=== PATIENT | female | born 1995 | race Caucasian/White ===

== ENCOUNTER 2016-07-08 18:19 | Emergency (ER) | payer OTHER ==
[2016-07-08 19:08] VITALS: BP 130/74
--- NOTE | 2016-07-08 20:27 | RAD ---
INDICATION: Mid wrist pain overlying the carpal bones after a seizure COMPARISON: None. TECHNIQUE: 3 views left wrist. REPORT: The visualized bones are properly aligned and well corticated. The joint spaces are normal.There is no fracture, dislocation or other focal osseous abnormality. IMPRESSION: Normal radiograph of the left wrist. If the patient's symptoms persist, follow-up imaging is recommended.
--- NOTE | 2016-07-08 20:54 | UC ---
Hand/Wrist HPI - HPI Summary HPI Summary: HISTORY OF SEIZURES, BEING FOLLOWED BY DR VILLALOBOS, ON MEDICATION. AFTER SEIZURE 2.5 HOURS AGO HAD LEFT WRIST PAIN - History Of Current Complaint Chief Complaint: UCUpperExtremity Stated Complaint: WRIST INJURY Time Seen by Provider: 07/08/16 19:04 Hx Obtained From: Patient Hx Last Menstrual Period: 05/27/16 Onset/Duration: Sudden Onset, Lasting Hours, Still Present Severity Initially: Moderate Severity Currently: Moderate Character Of Pain: Dull, Aching, Stiffness Aggravating Factor(s): Flexion, Extension Alleviating: Nothing Related History: Dominant Hand Right - Allergies/Home Medications Allergies/Adverse Reactions: Allergies Allergy/AdvReac Type Severity Reaction Status Date / Time Latex Allergy Hives Verified 06/29/16 13:49 Pineapple Allergy Anaphylatic Verified 06/29/16 13:49 Shock BARBECUE SAUCE Allergy Anaphylatic Uncoded 06/29/16 13:49 Shock environmental Allergy Eyes Uncoded 05/03/15 11:06 Itchy/Swollen/Red/Watery Home Medications: Home Medications Levetiracetam [Keppra 500] 500 mg PO BID 07/08/16 [History Confirmed 07/08/16] PMH/Surg Hx/FS Hx/Imm Hx Previously Healthy: Yes Endocrine History Of: Denies: Diabetes Cardiovascular History Of: Denies: Hypertension, Pacemaker/ICD GI/ History Of: Denies: Renal Disease - Surgical History Surgical History: Yes Surgery Procedure, Year, and Place: appendectomy - Family History Known Family History: Positive: Cardiac Disease - Social History Occupation: Unemployed Lives: With Family Alcohol Use: None Substance Use Type: None Smoking Status (MU): Light Every Day Tobacco Smoker Type: Cigarettes Have You Smoked in the Last Year: No Household Exposure Type: Cigarettes Review of Systems Constitutional: Negative Skin: Negative Eyes: Negative ENT: Negative Respiratory: Negative Cardiovascular: Negative Gastrointestinal: Negative Genitourinary: Negative Motor: Negative Neurovascular: Negative Musculoskeletal: Arthralgia, Decreased ROM, Myalgia Neurological: Negative Psychological: Negative All Other Systems Reviewed And Are Negative: Yes Physical Exam Triage Information Reviewed: Yes Appearance: Well-Appearing, No Pain Distress, Well-Nourished Vital Signs: Initial Vital Signs Temp 98.0 F 07/08/16 19:04 Pulse 79 07/08/16 19:04 Resp 18 07/08/16 19:04 BP 130/74 07/08/16 19:04 Pulse Ox 99 07/08/16 19:04 Vital Signs Reviewed: Yes Eye Exam: Normal ENT Exam: Normal ENT: Positive: Normal ENT inspection, Hearing grossly normal, Pharynx normal, TMs normal Dental Exam: Normal Neck exam: Normal Neck: Positive: Supple, Nontender, No Lymphadenopathy Respiratory Exam: Normal Respiratory: Positive: Chest non-tender, Lungs clear, Normal breath sounds, No respiratory distress, No accessory muscle use Cardiovascular Exam: Normal Cardiovascular: Positive: RRR, No Murmur, Pulses Normal Abdominal Exam: Normal Abdomen Description: Positive: Nontender, No Organomegaly Musculoskeletal: Positive: No Edema, Strength Limited @ - LEFT WRIST, ROM Limited @ - LEFT WRIST Neurological Exam: Normal Psychological Exam: Normal Psychological: Positive: Normal Response To Family Skin Exam: Normal Hand/Wrist Course/Dx - Differential Dx/Diagnosis Differential Diagnosis/HQI/PQRI: Fracture, Sprain, Strain Provider Diagnoses: LEFT WRIST SPRAIN Discharge - Discharge Plan Condition: Stable Disposition: HOME Patient Education Materials: Wrist Sprain (ED) Referrals: [facility] – [facility] [Outside] Daron Escobar NP [Primary Care Provider] -
== END 2016-07-08 21:03 | disposition home or self-care (01) ==
LOC: UCEAST 18:19
DX: S63.502A Unspecified sprain of left wrist, initial encounter (principal); X58.XXXA Exposure to other specified factors, initial encounter; Y93.9 Activity, unspecified; Y92.9 Unspecified place or not applicable; G40.909 Epilepsy, unspecified, not intractable, without status epilepticus; F17.210 Nicotine dependence, cigarettes, uncomplicated
CPT/HCPCS: 99212; G0463

== ENCOUNTER 2017-12-31 18:40 | Emergency (ER) | payer OTHER ==
--- NOTE | 2017-12-31 20:06 | ED ---
Upper Extremity Pain - HPI Summary HPI Summary: This patient is a 22 year old F presenting to [facility] with a chief complaint of left wrist pain since 15:00 today. Patient reports that she had a seizure today and fell onto her left wrist. The patient rates the pain 10/10 in severity. Symptoms aggravated by movement. Symptoms alleviated by nothing. Patient denies any other pain. Patient has hx of seizures but notes that she does not usually have more than one per day. Patient takes Keppra and Lamictal. - History of Current Complaint Chief Complaint: EDGeneral Stated Complaint: LT WRIST INJURY Time Seen by Provider: 12/31/17 19:39 Hx Obtained From: Patient Hx Last Menstrual Period: 05/27/16 Mechanism Of Injury: Fall From A Standing Position Onset/Duration: Started Hours Ago, Still Present Timing: Constant, Lasting Hours Severity Initially: Moderate Severity Currently: Moderate Pain Location: Wrist - left Aggravating Factor(s): Movement Alleviating Factor(s): Nothing - Allergies/Home Medications Allergies/Adverse Reactions: Allergies Allergy/AdvReac Type Severity Reaction Status Date / Time MS Latex [Latex] Allergy Hives Verified 06/29/16 13:49 MS Pineapple [Pineapple] Allergy Anaphylatic Verified 06/29/16 13:49 Shock BARBECUE SAUCE Allergy Anaphylatic Uncoded 06/29/16 13:49 Shock environmental Allergy Eyes Uncoded 05/03/15 11:06 Itchy/Swollen/Red/Watery PMH/Surg Hx/FS Hx/Imm Hx Endocrine/Hematology History: Denies: Hx Diabetes Cardiovascular History: Denies: Hx Hypertension, Hx Pacemaker/ICD History: Denies: Hx Renal Disease Sensory History: Denies: Hx Hearing Aid Neurological History: Reports: Hx Seizures Psychiatric History: Denies: Hx Panic Disorder - Surgical History Surgery Procedure, Year, and Place: appendectomy Infectious Disease History: No Infectious Disease History: Denies: Hx Clostridium Difficile, Hx Hepatitis, Hx Human Immunodeficiency Virus (HIV), Hx of Known/Suspected MRSA, Hx Shingles, Hx Tuberculosis, Hx Known/ Suspected VRE, Hx Known/Suspected VRSA, History Other Infectious Disease, Traveled Outside the [place] in Last 30 Days - Family History Known Family History: Positive: Cardiac Disease - Social History Alcohol Use: None Hx Substance Use: No Substance Use Type: Reports: None Hx Tobacco Use: Yes Smoking Status (MU): Light Every Day Tobacco Smoker Type: Cigarettes Have You Smoked in the Last Year: No Review of Systems Negative: Fever Negative: Epistaxis Negative: Cough Musculoskeletal: Other - left wrist pain Neurological: Other - seizure All Other Systems Reviewed And Are Negative: Yes Physical Exam - Summary Physical Exam Summary: Appearance: The patient is well-nourished in no acute distress and in no acute pain. Skin: The skin is warm and dry and skin color reflects adequate perfusion. HEENT: The head is normocephalic and atraumatic. The pupils are equal and reactive. The conjunctivae are clear and without drainage. Nares are patent and without drainage. Mouth reveals moist mucous membranes and the throat is without erythema and exudate. The external ears are intact. The ear canals are patent and without drainage. The tympanic membranes are intact. Neck: The neck is supple with full range of motion and non-tender. There are no carotid bruits. There is no neck vein distension. Respiratory: Chest is non-tender. Lungs are clear to auscultation and breath sounds are symmetrical and equal. Cardiovascular: Heart is regular rate and rhythm. There is no murmur or rub auscultated. There is no peripheral edema and pulses are symmetrical and equal. Abdomen: The abdomen is soft and non-tender. There are normal bowel sounds heard in all four quadrants and there is no organomegaly palpated. Musculoskeletal: Tender to dorsum of left wrist. There is no back tenderness noted. Other extremities are non-tender with full range of motion. There is good capillary refill. There is no peripheral edema or calf tenderness elicited. Neurological: Patient is alert and oriented to person, place and time. The patient has symmetrical motor strength in all four extremities. Cranial nerves are grossly intact. Deep tendon reflexes are symmetrical and equal in all four extremities. Psychiatric: The patient has an appropriate affect and does not exhibit any anxiety or depression. Triage Information Reviewed: Yes Vital Signs On Initial Exam: Initial Vitals Temp Pulse Resp BP Pulse Ox 97.6 F 101 16 137/85 98 12/31/17 18:44 12/31/17 18:44 12/31/17 18:44 12/31/17 18:44 12/31/17 18:44 Vital Signs Reviewed: Yes Diagnostics - Vital Signs Vital Signs Temp Pulse Resp BP Pulse Ox 12/31/17 18:44 97.6 F 101 16 137/85 98 - Laboratory Lab Statement: Any lab studies that have been ordered have been reviewed, and results considered in the medical decision making process. - Radiology Left Wrist XR Xray Interpretation: No Acute Changes - impression: negative for fracture Radiology Interpretation Completed By: ED Physician - Dr. Camara, pending official report Course/Dx - Course Course Of Treatment: Ms. Jacobson is a history of seizures and had a witnessed seizure today. She comes in with a concern that she hurt her wrist during the seizure and does not want to be evaluated for the breakthrough as she for he frequently has breakthrough seizures. She takes both Lamictal and Keppra, neither of which I can get a level on today. X-ray of her left wrist showed no acute fracture and she was placed in a cock-up splint and recommended follow-up. - Diagnoses Provider Diagnoses: Left wrist sprain, Breakthrough seizure Discharge - Sign-Out/Discharge Documenting (check all that apply): Patient Departure - discharge - Discharge Plan Condition: Stable Disposition: HOME Patient Education Materials: Recurrent Seizures in Adults (ED), Wrist Sprain ( ED) Referrals: Daron Escobar SOLDERER ASSEMBLER [Primary Care Provider] - Ayad Monroy MD [Medical Doctor] - 2 Days Additional Instructions: Follow up with Dr. Gayle, neurologist, in 2-3 days. Return to emergency department with any new or worsening symptoms. - Billing Disposition and Condition Condition: STABLE Disposition: Home - Attestation Statements Document Initiated by Scribe: Yes Documenting Scribe: Jamilah Mathew Provider For Whom Scribe is Documenting (Include Credential): Holden Camara MD Scribe Attestation: Jamilah Melissa, scribed for Holden Camara MD on 12/31/17 at 2150. Scribe Documentation Reviewed: Yes Provider Attestation: The documentation as recorded by the [email or web address] accurately reflects the service I personally performed and the decisions made by me, Holden Camara MD
[2017-12-31 20:44] VITALS: BP 116/79
--- NOTE | 2018-01-01 07:37 | RAD ---
INDICATION: Left wrist pain since a fall during a seizure similar examination dated July 08, 2016 COMPARISON: None. TECHNIQUE: 3 views left wrist. REPORT: The visualized bones are properly aligned and well corticated. The joint spaces are normal.There is no fracture, dislocation or other focal osseous abnormality. IMPRESSION: Normal radiograph of the left wrist. If the patient's symptoms persist, follow-up imaging is recommended. R0
== END 2017-12-31 20:37 | disposition home or self-care (01) ==
LOC: ED 18:40
DX: S63.502A Unspecified sprain of left wrist, initial encounter (principal); W19.XXXA Unspecified fall, initial encounter; Y92.9 Unspecified place or not applicable
CPT/HCPCS: 99281

== ENCOUNTER 2018-10-30 19:28 | Emergency (ER) | payer OTHER ==
[2018-10-30] MEDS ORDERED: diPHENhydraMINE PO* 25 MG PO ONE (22:06)
[2018-10-30] MEDS ORDERED: Ibuprofen TAB* 600 MG PO ONE (22:06)
--- NOTE | 2018-10-30 22:48 | ED ---
Adult Trauma - HPI Summary HPI Summary: Patient complains of right hip pain status post fall 10/28/18. Patient had been ambulating, but states pain was worse today, radiates down leg. Pain is worse with walking and standing. Patient denies any other pain in her symptoms related to fall. Patient does admit to recent periorbital swelling around left eye which is resolving. Denies LOC, trauma, vision change, eye pain, fever, purulent drainage. Denies fever, cough, sore throat, CP, SOB, N/V/D, abdominal pain, change in urine, change in BM. Ankle history is seizures, chronic back pain. Patient has taken no meds for pain. Asked for work note. - History of Current Complaint Chief Complaint: EDHipPelvisInjury Stated Complaint: LEFT SIDE FACIAL SWELLING, RIGHT HIP PAIN PER PT Time Seen by Provider: 10/30/18 21:47 Hx Obtained From: Patient Hx Last Menstrual Period: 05/27/16 Mechanism of Injury: Fall Loss of Consciousness: no loss of consciousness Onset/Duration: Started Days Ago Onset of Pain: Immediate Onset Severity: Moderate Current Severity: Severe Pain Intensity: 9 Pain Scale Used: 0-10 Numeric Location: Extremities Character: Dull, Aching Aggravating Factor(s): Movement, Weight Bearing Alleviating Factor(s): Rest Associated Signs & Symptoms: Positive: Negative - Allergy/Home Medications Allergies/Adverse Reactions: Allergies Allergy/AdvReac Type Severity Reaction Status Date / Time latex Allergy Hives Verified 10/30/18 19:36 pineapple Allergy Anaphylatic Verified 10/30/18 19:36 Shock barbecue sauce Allergy Unknown Uncoded 10/30/18 19:36 Reaction Details environmental Allergy Itching Uncoded 10/30/18 19:36 PMH/Surg Hx/FS Hx/Imm Hx Endocrine/Hematology History: Denies: Hx Diabetes Cardiovascular History: Denies: Hx Hypertension, Hx Pacemaker/ICD History: Denies: Hx Renal Disease Sensory History: Denies: Hx Legally Blind, Hx Hearing Aid EENT History: Denies: Hx Deafness Neurological History: Reports: Hx Seizures Psychiatric History: Denies: Hx Panic Disorder - Surgical History Surgery Procedure, Year, and Place: appendectomy Infectious Disease History: No Infectious Disease History: Denies: Hx Clostridium Difficile, Hx Hepatitis, Hx Human Immunodeficiency Virus (HIV), Hx of Known/Suspected MRSA, Hx Shingles, Hx Tuberculosis, Hx Known/ Suspected VRE, Hx Known/Suspected VRSA, History Other Infectious Disease, Traveled Outside the [place] in Last 30 Days - Family History Known Family History: Positive: Cardiac Disease - Social History Alcohol Use: Occasionally Hx Substance Use: No Substance Use Type: Reports: None Hx Tobacco Use: Yes Smoking Status (MU): Light Every Day Tobacco Smoker Type: Cigarettes Have You Smoked in the Last Year: No Review of Systems Constitutional: Negative Eyes: Negative ENT: Negative Cardiovascular: Negative Respiratory: Negative Gastrointestinal: Negative Genitourinary: Negative Musculoskeletal: Other Skin: Negative Neurological: Negative Psychological: Normal All Other Systems Reviewed And Are Negative: Yes Physical Exam - Summary Physical Exam Summary: Very mild swelling of left upper eyelid. EOMI. P PERRLA. No erythema, ecchymosis, deformity noted. Full range of motion of right hip with some mild pain. Mild pain with palpation of right hip. No ecchymosis, erythema, deformity, swelling, extra warmth noted to right hip. PMS intact distally. No pain with palpation or abdomen. Triage Information Reviewed: Yes Vital Signs On Initial Exam: Initial Vitals Temp Pulse Resp BP Pulse Ox 98.5 F 108 16 122/80 97 10/30/18 19:30 10/30/18 19:30 10/30/18 19:30 10/30/18 19:30 10/30/18 19:30 Vital Signs Reviewed: Yes Appearance: Positive: Well-Appearing Skin: Positive: Warm Head/Face: Positive: Normal Head/Face Inspection Eyes: Positive: Normal Neck: Positive: Supple Respiratory/Lung Sounds: Positive: Clear to Auscultation Cardiovascular: Positive: Normal Abdomen Description: Positive: Nontender Musculoskeletal: Positive: Normal Neurological: Positive: Normal Psychiatric: Positive: Normal AVPU Assessment: Alert - [place] Coma Scale Best Eye Response: 4 - Spontaneous Best Motor Response: 6 - Obeys Commands Best Verbal Response: 5 - Oriented Coma Scale Total: 15 Diagnostics - Vital Signs Vital Signs Temp Pulse Resp BP Pulse Ox 10/30/18 21:35 98.1 F 102 18 121/75 97 10/30/18 19:30 98.5 F 108 16 122/80 97 - Laboratory Lab Statement: Any lab studies that have been ordered have been reviewed, and results considered in the medical decision making process. Adult Trauma Course/Dx - Course Course Of Treatment: Patient complains of right hip pain status post fall . Patient had been ambulating, but states pain was worse today, radiates down leg. Pain is worse with walking and standing. Patient denies any other pain in her symptoms related to fall. Patient does admit to recent periorbital swelling around left eye which is resolving. Denies LOC, trauma, vision change , eye pain, fever, purulent drainage. Denies fever, cough, sore throat, CP, SOB , N/V/D, abdominal pain, change in urine, change in BM. Ankle history is seizures, chronic back pain. Patient has taken no meds for pain. Asked for work note. Vital signs within normal limits. X-ray right hip unremarkable. Periorbital swelling self resolving. Advised rest, ibuprofen and ice for right hip. Follow-up with orthopedics if symptoms persist more than 1 week. - Diagnoses Provider Diagnoses: Fall, Acute right hip pain, Periorbital swelling Discharge - Sign-Out/Discharge Documenting (check all that apply): Patient Departure Patient Received Moderate/Deep Sedation with Procedure: No - Discharge Plan Condition: Stable Disposition: HOME Patient Education Materials: Hip Pain (ED) Forms: *Work Release Referrals: Daron Escobar, BROADCAST PROGRAM DIRECTOR [Primary Care Provider] - Additional Instructions: Continue to take Benadryl 25 mg every 6 hours until swelling around left eye resolves. Rest, ibuprofen and ice for right hip pain. If symptoms last more than a week follow-up with orthopedics Dr. Kinsey for further evaluation. - Billing Disposition and Condition Condition: STABLE Disposition: Home
[2018-10-30 23:52] VITALS: BP 117/94
== END 2018-10-30 23:51 | disposition home or self-care (01) ==
LOC: ED 19:28
DX: M25.551 Pain in right hip (principal); R22.0 Localized swelling, mass and lump, head; W19.XXXA Unspecified fall, initial encounter; Y92.9 Unspecified place or not applicable; F17.210 Nicotine dependence, cigarettes, uncomplicated; Z91.040 Latex allergy status
CPT/HCPCS: 99282; A9270-GY